=== PATIENT | male | born 2000 | race Hispanic/Latino ===

== ENCOUNTER 2018-09-28 02:58 | Emergency (ER) | payer OTHER ==
[~2018-09-28] VITALS: Ht 160 cm; Wt 72.7 kg
[2018-09-28 02:59] VITALS: BP 141/90
[2018-09-28] MEDS ORDERED: CIPROFLOXACIN 500 MG TAB PO ONE (03:30)
[2018-09-28] MEDS ORDERED: CIPR-249 PO (03:40)
[2018-09-28 05:22] LABS: CHLAMYDIA DNA AMPLIFICATION POSITIVE (NEGATIVE); GC DNA AMPLIFICATION NEGATIVE (NEGATIVE)
== END 2018-09-28 03:55 | disposition home or self-care (01) ==
LOC: M ED 02:58
DX: N41.9 Inflammatory disease of prostate, unspecified (principal); A56.2 Chlamydial infection of genitourinary tract, unspecified; N39.0 Urinary tract infection, site not specified; K52.9 Noninfective gastroenteritis and colitis, unspecified; F17.210 Nicotine dependence, cigarettes, uncomplicated

== ENCOUNTER 2019-03-13 09:54 | Emergency (ER) | payer OTHER ==
[~2019-03-13] VITALS: Ht 160 cm; Wt 72.7 kg
[~2019-03-13 09:54] MED LIST: CIPR-249 PO
[2019-03-13] MEDS ORDERED: KETOROLAC 60 MG/2 ML VIAL (J1885) IM ONE (13:30)
[2019-03-13 13:53] VITALS: BP 130/76
[2019-03-13] MEDS ORDERED: KETO10TAB PO (14:24)
== END 2019-03-13 14:45 | disposition home or self-care (01) ==
LOC: M ED 09:54
DX: S39.012A Strain of muscle, fascia and tendon of lower back, initial encounter (principal); X58.XXXA Exposure to other specified factors, initial encounter; Y92.89 Other specified places as the place of occurrence of the external cause
CPT/HCPCS: 96372; 99283; J1885